=== PATIENT | male | born 1975 ===

== ENCOUNTER 2023-10-25 11:09 | Outpatient (CLI) | payer OTHER | END 2023-10-25 11:16 | disposition home or self-care (01) | LOC: RAD 11:09 | DX: M54.50 Low back pain, unspecified (principal); M53.1 Cervicobrachial syndrome; M54.2 Cervicalgia ==

== ENCOUNTER 2023-11-18 09:10 | Outpatient (CLI) | payer OTHER | END 2023-11-18 09:17 | disposition home or self-care (01) | LOC: RAD 09:10 | DX: K59.00 Constipation, unspecified (principal) ==